=== PATIENT | female | born 1990 | race Caucasian/White ===

== ENCOUNTER 2016-12-11 11:34 | Emergency (ER) | payer SELFPAY ==
[2016-12-11 11:49] VITALS: BP 152/112
[2016-12-11] MEDS ORDERED: Ketorolac INJ* 60 MG/2 ML VIAL IM ONE (11:59)
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
[2016-12-11] MEDS ORDERED: Sulfamethox/Trimethoprim DS 800/160* TAB PO ONE (12:44)
[2016-12-11] MEDS ORDERED: Cyclobenzaprine TAB* 10 MG PO ONE (12:44)
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
--- NOTE | 2016-12-14 07:35 | UC ---
Progress - Progress Note Progress Note: + UC e coli, sensitive to the bactrim she is on. complete abx and f/u with pcp
== END 2016-12-11 13:04 | disposition home or self-care (01) ==
LOC: UCCORT 11:34
DX: S39.012A Strain of muscle, fascia and tendon of lower back, initial encounter (principal); X50.1XXA Overexertion from prolonged static or awkward postures, initial encounter; Y93.9 Activity, unspecified; Y92.9 Unspecified place or not applicable; N39.0 Urinary tract infection, site not specified; Z88.1 Allergy status to other antibiotic agents; F17.210 Nicotine dependence, cigarettes, uncomplicated
CPT/HCPCS: 72100; 81003; 87077; 87086; 87186; 96372; 99212; A9270-GY; G0463; J1885